=== PATIENT | male | born 1945 | race Caucasian/White ===

== ENCOUNTER 2020-08-19 10:46 | Outpatient (CLI) | payer BC ==
[2020-08-19 12:46] LABS: Hemoglobin 13.8 g/dL (13.5-17.5)
[2020-08-19 13:37] LABS: Anion Gap 16 mmol/L (10-20); BUN (Urea Nitrogen) 14 mg/dL (8.4-25.7); Calc. Creatinine Clearance 0 mL/min (70-130); Calcium 9.7 mg/dL (7.8-10.44); Carbon Dioxide 22 mmol/L (23-31); Chloride 105 mmol/L (98-107); Glucose 152 mg/dL (83-110); Potassium 4.8 mmol/L (3.5-5.1); Sodium 138 mmol/L (136-145)
[2020-08-19 18:49] LABS: SARS-CoV-2 PCR by NAA Not Detected (NotDetected)
== END 2020-08-19 10:47 | disposition home or self-care (01) ==
LOC: CSHLAB 10:46
PROVIDERS: ATTEND Otolaryngology Otolaryngic Allergy
DX: Z01.818 Encounter for other preprocedural examination (principal); Z20.822 Contact with and (suspected) exposure to COVID-19; R22.1 Localized swelling, mass and lump, neck
CPT/HCPCS: 80048; 85014; 85018; 87635; 93005; 93010; U0003; U0005

== ENCOUNTER 2020-08-24 06:13 | Day surgery (SDC) | payer BC ==
[2020-08-23 10:47] VITALS: BMI 25.8
[2020-08-24] MEDS ORDERED: SUGAMMADEX SODIUM 500 MG/5 ML VIAL ONE (06:23)
[2020-08-24] MEDS ORDERED: Propofol 1,000 MG/100 ML VIAL IV ONE (06:23)
[2020-08-24] MEDS ORDERED: Lidocaine 1% MPF 2 ML VIAL ONE (06:33)
[2020-08-24] MEDS ORDERED: Fentanyl 100 MCG/2 ML VIAL ONE (06:34)
[2020-08-24] MEDS ORDERED: Midazolam HCl 2 mg/2 ml Vial ONE (06:34)
[2020-08-24] MEDS ORDERED: PROPOFOL 20 ML ONE (06:34)
[2020-08-24] MEDS ORDERED: Rocuronium Bromide 10 MG/ML (10ML VIAL) ONE (06:34)
[2020-08-24] MEDS ORDERED: Lidocaine 1% PF 5 ML VIAL ONE (06:35)
[2020-08-24] MEDS ORDERED: Dexamethasone 20 MG/5 ML VIAL ONE (06:35)
[2020-08-24] MEDS ORDERED: Ondansetron PF 4 MG/2 ML Vial ONE (06:35)
[2020-08-24] MEDS ORDERED: EPINEPHrine 1 MG/ML AMP ONE ×2 (06:43)
== END 2020-08-24 10:05 | disposition home or self-care (01) ==
LOC: CSHSDC 06:13
PROVIDERS: ATTEND Otolaryngology Otolaryngic Allergy
PROC: 0CBR8ZX Excision of Epiglottis, Via Natural or Artificial Opening Endoscopic, Diagnostic (ICD-10-PCS; principal; 2020-08-24)
DX: C12 Malignant neoplasm of pyriform sinus (principal); G47.30 Sleep apnea, unspecified; I25.10 Atherosclerotic heart disease of native coronary artery without angina pectoris; E11.9 Type 2 diabetes mellitus without complications
CPT/HCPCS: 88305; 88331; 88341; 88342; J0171; J1100; J2250; J2405; J2704; J3010